=== PATIENT | male | born 2000 | race Caucasian/White ===

== ENCOUNTER 2018-04-16 18:31 | Emergency (ER) | payer OTHER ==
[2018-04-16] MEDS ORDERED: MORPHINE SULFATE IR 15 MG TABLET PO ONE (21:01)
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
[2018-04-17] MEDS ORDERED: HYDROMORPHONE HCL INJ/PF 2 MG/ML AMPULE IM ONE (00:44)
[2018-04-17] MEDS ORDERED: PROPOFOL 100 ML IV ONE (02:10)
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
[2018-04-17] MEDS ORDERED: ONDANSETRON HCL INJ/PF 4 MG/2 ML SDV ONE (03:08)
[2018-04-17] MEDS ORDERED: HYDROMORPHONE HCL INJ/PF 2 MG/ML AMPULE ONE (03:08)
[2018-04-17] MEDS ORDERED: CEFAZOLIN INJ 1 GM VIAL ONE (03:09)
[2018-04-17] MEDS ORDERED: PROPOFOL INJ 200 MG/20 ML VIAL IV ONE (03:10)
[2018-04-17] MEDS ORDERED: HYDROMORPHONE HCL INJ/PF 2 MG/ML AMPULE IV ONE (03:10)
[2018-04-17] MEDS ORDERED: ONDANSETRON HCL INJ/PF 4 MG/2 ML SDV IV ONE (03:10)
[2018-04-17] MEDS ORDERED: CEFAZOLIN 2 GM/D5W RTU 2 GM/50 ML RTUPB IV ONE (03:11)
[2018-04-17] MEDS ORDERED: NORMAL SALINE 1000 ML 1,000 ML IV ONE (03:11)
[2018-04-17] MEDS ORDERED: HYDROCODONE/ACETAMINOPHEN 5-325 MG (6 TAB/ER DISP) PO PRN (03:20)
[2018-04-17] MEDS ORDERED: ONDANSETRON ODT 4 MG TAB (6 TAB/ER DISP) PO PRN (03:20)
[2018-04-17 04:17] VITALS: BP 124/74
== END 2018-04-17 04:17 | disposition home or self-care (01) ==
LOC: ER 18:31
DX: S51.002A Unspecified open wound of left elbow, initial encounter (principal); S81.001A Unspecified open wound, right knee, initial encounter; L08.9 Local infection of the skin and subcutaneous tissue, unspecified; S81.002A Unspecified open wound, left knee, initial encounter; S81.802A Unspecified open wound, left lower leg, initial encounter; S81.801A Unspecified open wound, right lower leg, initial encounter; S31.109A Unspecified open wound of abdominal wall, unspecified quadrant without penetration into peritoneal cavity, initial encounter; S31.000A Unspecified open wound of lower back and pelvis without penetration into retroperitoneum, initial encounter; S21.202A Unspecified open wound of left back wall of thorax without penetration into thoracic cavity, initial encounter; V86.96XA Unspecified occupant of dirt bike or motor/cross bike injured in nontraffic accident, initial encounter
CPT/HCPCS: 99284; 96372; 99153; 99152; 96375; 96365; 73080; 71101; 73590; J1170; J2405; J7030; J2704; J0690